=== PATIENT | male | born 1930 | race Caucasian/White ===

== ENCOUNTER 2017-06-17 08:11 | Day surgery (SDC) | payer MEDICARE ==
[2017-06-17] MEDS ORDERED: ONDANSETRON HCL INJ/PF 4 MG/2 ML SDV ONE (08:20)
[2017-06-17] MEDS ORDERED: NALOXONE HCL INJ/PF 0.4 MG/1 ML SDV ONE (08:20)
[2017-06-17] MEDS ORDERED: MIDAZOLAM 2 MG/2 ML INJ ONE (08:20)
[2017-06-17] MEDS ORDERED: GLYCOPYRROLATE INJ 0.4 MG/2 ML VIAL ONE (08:20)
[2017-06-17] MEDS ORDERED: FENTANYL CITRATE INJ/PF 100 MCG/2 ML AMPUL ONE (08:21)
[2017-06-17] MEDS ORDERED: FLUMAZENIL INJ 0.5 MG/5 ML VIAL ONE (08:21)
[2017-06-17] MEDS ORDERED: EPINEPHRINE INJ 1 MG/10 ML DISP.SYRIN ONE (08:21)
[2017-06-17] MEDS ORDERED: GLUCAGON,HUMAN RECOMB 1 MG INJ ONE (08:21)
--- NOTE | 2017-06-17 09:38 | Operative Report ---
Operative Report DATE OF SURGERY: 06/17/17 PREOPERATIVE DIAGNOSIS: Personal history of hyperplastic polyps POSTOPERATIVE DIAGNOSIS: Same with diverticulosis; enlarged prostate; otherwise normal colon OPERATION: Total colonoscopy to cecum photodocumentation SURGEON: ERIK CHENG ANESTHESIA: Moderate Sedation TISSUE REMOVED OR ALTERED: None COMPLICATIONS: None ESTIMATED BLOOD LOSS: None INTRAOPERATIVE FINDINGS: See below PROCEDURE: Obtaining informed consent the patient was taken from the preoperative holding area to the main endoscopy suite where monitoring devices were attached to the patient. Plan and surgical timeout were conducted The patient was placed in the left lateral decubitus position with knees to chest. A perianal examination was performed. There was no visible or palpable anorectal pathology. Sphincter tone was felt to be normal. The flexible adult colonoscope was advanced through the anal rectal canal, all the way to the cecum. Visualization of the cecum was achieved and the ileocecal valve was seen and transillumination of the the anterior abdominal wall and serrated. This was an excellent study on the well-prepped bowel. The colonoscope was withdrawn slowly and methodically checked and the mucosa carefully. There was no evidence of tumor, stricture, bleeding or polyp. There were extensive diverticulosis of the sigmoid colon . The scope was slowly withdrawn through the anal rectal canal. Complete visualization of the rectum was achieved with photodocumentation. The scope was withdrawn to the patient's anus. The patient tolerated the procedure well and was taken to the recovery area in stable condition. Based on today's findings, and patient's advanced age, will likely not be required to undergo subsequent surveillance colonoscopy.
--- NOTE | 2017-06-17 09:43 | PDOC DISCHARGE SUMMARY ---
Discharge Summary (SDC) - Discharge Final Diagnosis: Sigmoid diverticulosis; otherwise normal colonoscopy Date of Surgery: 06/17/17 Discharge Date: 06/17/17 Condition: Good Treatment or Instructions: [facility] [place] [id number] POST ENDOSCOPY DISCHARGE INSTRUCTIONS 1. Diet: Start clear liquids that a regular diet as tolerated. 2. Resume all preoperative medications. All oral anticoagulants and aspirins can be resumed 24 hours after procedure. 3. If a polypectomy was performed some bleeding per rectum may occur. This should stop within 3 days. If not, please contact the office. 4. If you had a colonoscopy you may experience some bloating and delayed return of normal bowel function for several days, your regular bowel movement pattern should resume within a week. 5. Please contact [facility] at to make an appointment with Dr. Chatterjee for 1 to 3 weeks following procedure. 6. If you have any questions or concerns regarding your care,treatment plan or follow up, please contact our office. Referrals: GOPI SEGURA MD [Primary Care Provider] - Discharge Diet: As Tolerated Discharge Activity: Activity As Tolerated Home Care Assistance: None Needed Report the Following to Your Physician Immediately: Shortness of Breath, Increase in Pain, Fever over 101 Degrees
[2017-06-17 10:26] VITALS: BP 150/67
== END 2017-06-17 10:28 | disposition home or self-care (01) ==
LOC: END 08:11
PROVIDERS: ATTEND Surgery
PROC: 0DJD8ZZ Inspection of Lower Intestinal Tract, Via Natural or Artificial Opening Endoscopic (ICD-10-PCS; principal; 2017-06-17 09:00)
DX: Z12.11 Encounter for screening for malignant neoplasm of colon (principal); K57.30 Diverticulosis of large intestine without perforation or abscess without bleeding; Z86.010 Personal history of colon polyps; Z87.19 Personal history of other diseases of the digestive system; Z96.649 Presence of unspecified artificial hip joint; N40.0 Benign prostatic hyperplasia without lower urinary tract symptoms; Z79.899 Other long term (current) drug therapy
CPT/HCPCS: G0121; J2250; J3010; 45378; J0171; J1610; J2310; J2405; J3490